=== PATIENT | male | born 1995 | race Caucasian/White ===

== ENCOUNTER 2017-06-12 16:13 | Emergency (ER) | payer OTHER, BC ==
[~2017-06-12] VITALS: Ht 185.4 cm; Wt 94.9 kg
[2017-06-12 16:14] VITALS: TEMP 36.7; Ht 185.4 cm; Wt 94.9 kg
[2017-06-12] MEDS ORDERED: DIPHTHERIA/TETANUS/PERTUSSIS 0.5 ML SYR/VIAL IM. ONE (16:30)
[2017-06-12 17:39] VITALS: BP 118/72; PULSE 65; O2SAT 99
--- NOTE | 2017-06-12 21:35 | EMERGENCY ROOM VISIT NOTE ---
History First contact with patient: 16:18 Chief Complaint: LACERATION/CUT (NON-SUTURE) Stated Complaint: LAC ON RT INDEX FINGER,PASSED OUT,WC Nursing Triage Summary: Pt cut his right index finger with a knife and then passed out. +LOC denies hitting head History of Present Illness The patient is a 21 year old male who presents to the Emergency Room with complaints of laceration to his right index finger that occurred about one hour ago. The patient was using a sharp kitchen knife when he accidentally cut the lateral aspect of the right second finger at work. The patient was feeling well until he went to put a Band-Aid on the wound. He saw his own blood and had a brief episode of syncope. He did not strike his head or lose consciousness. The event was witnessed and the patient came to very quickly. The patient does not have any pain complaints at this time. He is unsure of his tetanus. The patient is accompanied by his father who states that there is a family history of diabetes, and the patient himself did not eat breakfast this morning. The patient is without other complaints at this time. He rates his discomfort a 0/10. Review of Systems More than 10 systems were reviewed and otherwise negative with the exception of history of present illness. Past Medical/Surgical History No chronic medical disease Family History Family history of cardiac disease and diabetes Social History Smoking Status: Never Smoker Occupation Status: employed Current/Historical Medications No Active Prescriptions or Reported Meds Physical Exam Vital Signs Date Time Temp Pulse Resp B/P (MAP) Pulse Ox O2 Delivery O2 Flow Rate FiO2 06/12/17 17:39 65 16 118/72 99 06/12/17 16:14 36.7 74 16 129/74 97 Room Air Pain Rating (0-10): 0 Physical Exam VITALS: Vitals are noted on the nurse's note and reviewed by myself. Vital signs stable. GENERAL: Well-developed, well-nourished, male, who is in no acute distress and resting comfortably. Patient is cooperative with the examination. HEAD: Normocephalic atraumatic. EARS: External ear normal. External auditory canals clear, tympanic membranes pearly lindsey without erythema or effusion bilaterally. EYES: Pupils equal round and reactive to light and accommodation. Conjunctivae without injection, sclerae without icterus. Extraocular movements intact. NOSE: Patent, turbinates without inflammation or discharge. MOUTH: Mucous membranes moist. Tonsils are not enlarged. Pharynx without erythema, blood, or exudate. Uvula midline. Airway patent. NECK: Supple without nuchal rigidity. No lymphadenopathy. No thyromegaly. Cervical spine is nontender. HEART: Regular rate and rhythm without murmurs gallops or rubs. LUNGS: Clear to auscultation bilaterally without wheezes, rales or rhonchi. No retractions or accessory muscle use. ABDOMEN: Positive normal bowel sounds x 4. Soft, nontender, without masses or organomegaly. No guarding or rebound tenderness. MUSCULOSKELETAL: No muscle atrophy, erythema, or edema noted. Full range of motion without joint tenderness in all extremities. No tenderness to palpation. Normal gait. Strength 5/5 throughout. NEURO: Patient was alert and oriented to person place and time. CN II through XII grossly intact. Deep tendon reflexes 2+ throughout. No focal neurological deficits SKIN: The skin was with a very minimal 1.0 cm laceration to the lateral aspect of the right second finger. This wound does not significantly gape. The bleeding is well-controlled. Neurovascular status and strength to flexion and extension is full. Medical Decision & Procedures Laboratory Results Test 06/12/17 16:49 Bedside Glucose 128 mg/dl (70-99) Medications Administered Medications (Trade) Dose Ordered Sig/Lyubov Route Start Time Stop Time Status Last Admin Dose Admin Diphtheria/ Pertussis/Tetanus Vacc (Adacel Inj) 0.5 ml ONCE ONCE IM. 06/12/17 16:30 06/12/17 16:31 DC 06/12/17 16:51 0.5 ML ED Course Physical exam and history were performed. Nursing notes, EMR, and Medication List were personally reviewed. Patient appears to have suffered a laceration to his finger at work about one hour ago. On examination the patient does have a very small laceration that will not require any repair. The wound was cleansed and dressed with a bacitracin dressing. This should heal well without further intervention. The patient did require a tetanus, and this was updated. Based on the family history of cardiac disease and diabetes I did elect to perform an EKG and bedside glucose. BSG was 128. EKG was without acute ST elevation or significant ectopy. The patient was monitored for sometime here in the department. He was able to use the bathroom and drink without difficulty. Clinically the patient's symptoms represent a vasovagal episode. He appears well and without other significant findings. I discussed wound care with the patient, as well as the importance of following with his PCP if he has any other ongoing or persistent symptoms. The family was pleased with this plan and voiced understanding. The patient's discomfort was rated as 0/10 at the time of departure. The chart was completed utilizing [employer] Speech Voice Recognition Software. Grammatical errors, random word insertions, pronoun errors, and incomplete sentences are an occasional consequence of this system due to software limitations, ambient noise, and hardware issues. Any formal questions or concerns about the content, text, or information contained within the body of this dictation should be directly addressed to the provider for clarification. . Medical Decision Differential diagnosis includes, but is not limited to: Laceration, abrasion, vagal episode, myocardial infarction, dysrhythmia, pericarditis, pneumothorax, aortic aneurysm/dissection, DVT/PE, anxiety, GERD, PUD, electrolyte imbalance, thyroid disorder, pneumonia, bronchitis, pancreatitis, and others Medication Reconcilliation Current Medication List: was personally reviewed by me Blood Pressure Screening Patient's blood pressure: Normal blood pressure Impression Primary Impression: Finger laceration Additional Impression: Vasovagal syncope Departure Information Dispostion Home / Self-Care Condition GOOD Prescriptions No Active Prescriptions or Reported Meds Forms HOME CARE DOCUMENTATION FORM, Work Instructions, Additional Instructions: Patient was see in ER today for medical care. Return to work on 06/14/2017 IMPORTANT VISIT INFORMATION Patient Instructions [facility] Additional Instructions You were seen and evaluated today on an emergency basis only. This is not a substitute for, or an effort to provide, complete comprehensive medical care. It is not possible to recognize and treat all injuries or illnesses in a single emergency department visit. For this reason it is recommended that you followup with your primary care physician next week for ongoing care and evaluation. You may change your wound dressing every 6-12 hours. Antibiotic ointment like bacitracin. Keep applying a dressing for the next 3 days then leave open to the air. You likely had a vasovagal episode today. These are quite common when people see their own blood. If you have persistent symptoms of this please come back to the ER or follow with your family doctor. You are welcome to return to the emergency department anytime with new, worsening, or concerning symptoms. Work Instructions Additional Work Instructions: Patient was see in ER today for medical care. Return to work on 06/14/2017 Problem Qualifiers
== END 2017-06-12 17:40 | disposition home or self-care (01) ==
LOC: C.EDB 16:13
DX: S61.210A Laceration without foreign body of right index finger without damage to nail, initial encounter (principal); W26.0XXA Contact with knife, initial encounter; Y99.0 Civilian activity done for income or pay; Y92.89 Other specified places as the place of occurrence of the external cause; R55 Syncope and collapse; Z23 Encounter for immunization; Z83.3 Family history of diabetes mellitus